=== PATIENT | female | born 1980 | race Caucasian/White ===

== ENCOUNTER 2024-02-20 09:05 | Emergency (ER) | payer BC, SELFPAY ==
[2024-02-20 09:09] VITALS: BP 145/99; PULSE 115; TEMP 37.4; O2SAT 98; BMI 28.4
--- NOTE | 2024-02-20 09:20 | XR_ITS ---
The [address] [address] Patient Name: OUSMANE BLANCO MRN: [id number] date: 1980 Sex: F Assigned Patient Location: ER Current Patient Location: ER Accession/Order Number: [id number] Exam Date: 02/20/2024 09:20 Report Date: 02/20/2024 09:44 At the request of: WIN RUELAS Procedure: XR chest 1V EXAMINATION: XR chest 1V REASON FOR EXAM: CP. Left-sided chest pain. COMPARISON: No comparison. FINDINGS: Cardiomediastinal shadows are normal with no pneumothorax, edema, infiltrate, or effusion. Bony thorax intact. XR/XR chest 1V IMPRESSION: No acute or focal cardiopulmonary findings. Electronically authenticated by: MEDHAT DAMON Date: 02/20/2024 09:44
--- NOTE | 2024-02-20 09:20 | ECG_ITS ---
The [facility] Test Date: 2024-02-20 Pat Name: OUSMANE BLANCO Department: Room: - Gender: Female [employer]: : 1980 Requested By: NINI PATTERSON Order Number: [id number] Reading MD: RODRIGUE HEBERT Measurements Intervals [place] Rate: 113 P: 72 NH: 174 QRS: 93 QRSD: 88 T: 17 QT: 336 QTc: 403 Interpretive Statements 1120 Sinus tachycardia 4068 Nonspecific [place] abnormality 7102 Moderate right axis deviation 9140 abnormal rhythm ECG No previous ECG available for comparison Electronically Signed On 02-21-2024 7:25:33 EDT by RODRIGUE HEBERT
[2024-02-20 09:29] LABS: Basophils Absolute Auto 0.1 10^3/uL (0.0-0.1); Basophils Percent Auto 0.4 % (0.2-2.0); Eosinophils Absolute Auto 0.1 10^3/uL (0.0-0.7); Eosinophils Percent Auto 0.8 % (0.9-7.0); Hematocrit 40.3 % (36.0-48.0); Hemoglobin 13.2 g/dL (12.0-16.0); Immature Granulocytes Abs Auto 0.04 10^3/uL (0.00-0.03); Immature Granulocytes Pct Auto 0.3 % (0.0-0.5); Lymphocytes Absolute Auto 2.4 10^3/uL (1.2-3.8); Lymphocytes Percent Auto 19.2 % (20.5-60.0); Mean Corpuscular HGB Conc 32.8 g/dL (29.9-35.2); Mean Corpuscular Hemoglobin 27.1 pg (26.7-34.0); Mean Corpuscular Volume 82.8 fL (81.0-99.0); Mean Platelet Volume 11.1 fL (9.5-13.5); Monocytes Absolute Auto 0.8 10^3/uL (0.3-0.8); Monocytes Percent Auto 6.3 % (1.7-12.0); Platelet Count 239 10^3/uL (150-450); Red Blood Count 4.87 10^6/uL (4.20-5.40); Red Cell Distribution Width 12.7 % (11.0-15.0); White Blood Count 12.4 10^3/uL (4.0-11.0)
[2024-02-20] MEDS: 0.9 % SODIUM CHLORIDE 1,000 ML 1000 ML IV (09:41)
[2024-02-20 09:46] LABS: Lactate/Lactic Acid 0.7 mmol/L (0.4-2.0)
[2024-02-20 09:48] LABS: D Dimer 0.39 mg/L FEU (<=0.59)
[2024-02-20 09:53] LABS: Albumin Globulin Ratio 0.9; Albumin Level 3.5 g/dL (3.4-5.0); Alkaline Phosphatase 121 U/L (46-116); Anion Gap 16.1; Aspartate Amino Transferase 12 U/L (15-37); BUN Creatinine Ratio 6.7; Bilirubin Total 0.7 mg/dL (0.2-1.0); Calcium 8.8 mg/dL (8.5-10.1); Carbon Dioxide 23.5 mmol/L (21.0-32.0); Chloride 102 mmol/L (98-107); Estimated GFR (African America >60 (>=60); Estimated GFR (Non-African Ame >60 (>=60); Globulin 3.8 g/dL; Glucose 100 mg/dL (74-106); Potassium 3.6 mmol/L (3.5-5.1); Sodium 138 mmol/L (136-145); Total Protein 7.3 g/dL (6.4-8.2); Troponin I High Sensitivity <4.0 pg/mL (4.0-51.3)
[2024-02-20 10:16] LABS: Alanine Aminotransferase 14 U/L (14-59)
--- NOTE | 2024-02-20 10:21 | CT_ITS ---
The [address] [address] Patient Name: OUSMANE BLANCO MRN: [id number] date: 1980 Sex: F Assigned Patient Location: ER Current Patient Location: ER Accession/Order Number: [id number] Exam Date: 02/20/2024 10:49 Report Date: 02/20/2024 11:37 At the request of: WIN RUELAS Procedure: CT abdomen pelvis wo con EXAMINATION: CT abdomen pelvis wo con REASON FOR EXAM: Left upper quadrant pain. TECHNIQUE: Dose reduction techniques were achieved by using automated exposure control and/or adjustment of mA and/or kV according to patient size and/or use of iterative reconstruction technique. Lung bases: No nodule, infiltrate, or effusion. Abdominal findings: There is inflammation surrounding the proximal descending colon. An inflamed diverticulum is seen in this location. The inflammation extends to the lateral conal fascia. There is no extraluminal gas or abscess. No free peritoneal gas. Findings compatible with diverticulitis. No abnormality of the noncontrast appearance of the liver, spleen, pancreas, or adrenal glands. No hydronephrosis. Hyperdense nodule at the upper pole left kidney measures 8 mm compatible with a proteinaceous cyst. No urolithiasis. No pancreatic or biliary ductal dilatation. No evidence for bowel obstruction. The appendix is normal. Pelvic findings: There are bilateral tubal ligation clips. Left ovarian follicle suggested. No abnormal distention of the urinary bladder. No adenopathy in the pelvic or inguinal regions. CT/CT abdomen pelvis wo con IMPRESSION: Left upper quadrant inflammation surrounding an inflamed diverticulum in the proximal descending colon. Findings compatible with uncomplicated acute diverticulitis of the proximal descending colon. Electronically authenticated by: MEDHAT DAMON Date: 02/20/2024 11:37
[2024-02-20] MEDS: FAMOTIDINE/PF 20 MG/2 ML VIAL IV (10:31)
[2024-02-20 10:42] LABS: Influenza Virus A Antigen Negative; Influenza Virus B Antigen Negative; Internal Control Within Normal Limits; SARS-CoV-2 Ag NEGATIVE (NEGATIVE)
[2024-02-20 11:29] LABS: HCG Qualitative NEGATIVE (NEGATIVE)
[2024-02-20] MEDS: KETOROLAC TROMETHAMINE 30 MG/ML VIAL 15 MG IVP (11:50)
--- NOTE | 2024-02-20 12:11 | ED_ITS ---
HPI - Abdominal Pain General Chief Complaint: Abdominal Pain Stated Complaint: ABDOMINAL/L SIDE PAIN Time Seen by Provider: 02/20/24 09:18 Source: patient Mode of arrival: walk-in Limitations: no limitations History of Present Illness HPI narrative: The patient presenting to us with almost 1 week history of symptoms including neck pain and sore throat no cough no chest pain, the patient initially signed in as chest pain but when pointing to the pain she is pointing to the left upper quadrant. She mentioned that almost on Thursday she started having this pain that is mostly fixed in that area associated with no nausea no vomiting no other complaints. The patient have had a low-grade fever she also had antibiotic that she finished last week after her primary care doctor put in azithromycin. Multiple family members were sick with a viral infection. The patient initially had sore throat and congestion but right now the left upper quadrant is fixed since Thursday which was 4- 5 days ago with no change in bowel movement no other complaints Related Data Previous Rx's ?Medication ?Instructions ?Recorded ciprofloxacin HCl 500 mg tablet 500 mg PO BID #14 tabs 02/20/24 (Cipro) famotidine 20 mg tablet (Pepcid) 20 mg PO BID #10 tabs 02/20/24 metronidazole 500 mg tablet 500 mg PO Q8H 7 days #21 tabs 02/20/24 Allergies Allergy/AdvReac Type Severity Reaction Status Date / Time pcn Allergy Intermediate Uncoded 02/20/24 09:09 Review of Systems ROS Status of ROS 10 or more systems reviewed and unremark able except as noted in history and below Exam Narrative Exam Narrative: Nurses notes and vital signs reviewed and patient is not hypoxic. General: Well-appearing and in no apparent distress. Skin: Warm, dry, no pallor noted. No rash. Head: Normocephalic, atraumatic. Neck: Supple, non-tender. Eye: Pupils are equal, round and EOMI. No scleral icterus. Ears, Nose, Mouth, and Throat: TM are clear, no nasal mucosal hypertrophy. Oral mucosa is moist, no posterior oropharynx erythema, uvula is mid-line Cardiovascular: Regular Rate and Rhythm without murmur, gallop or rub. Respiratory: No accessory muscle use or respiratory distress. Lungs are clear to auscultation, no wheezing, rales or rhonchi Chest Wall: no tenderness Back: No midline thoracic or lumbar vertebral tenderness. No CVA tenderness Musculoskeletal: normal ROM, no calf or popliteal tenderness, no lower extremity edema/swelling GI: Abdomen is soft, non-distended. Left upper quadrant tenderness noted on deep palpation. Neurological: A&O x4. No cranial nerve dysfunction observed. No truncal ataxia. Moves all extremities. Sensation intact. Psychiatric: Cooperative and interactive. Normal mood and affect. Constitutional Vital Signs, click to edit/add: Last Vital Signs Temp 99.4 F 02/20/24 09:09 Pulse 115 H 02/20/24 09:09 Resp 18 02/20/24 09:09 BP 145/99 H 02/20/24 09:09 Pulse Ox 98 02/20/24 09:09 O2 Del Method Room Air 02/20/24 09:09 Course Vital Signs Vital signs: Vital Signs Temperature 99.4 F 02/20/24 09:09 Pulse Rate 115 H 02/20/24 09:09 Respiratory Rate 18 02/20/24 09:09 Blood Pressure 145/99 H 02/20/24 09:09 Pulse Oximetry 98 02/20/24 09:09 Oxygen Delivery Method Room Air 02/20/24 09:09 Temperature 99.4 F 02/20/24 09:09 Pulse Rate 115 H 02/20/24 09:09 Respiratory Rate 18 02/20/24 09:09 Blood Pressure 145/99 H 02/20/24 09:09 Pulse Oximetry 98 02/20/24 09:09 Oxygen Delivery Method Room Air 02/20/24 09:09 MDM - Abdominal Pain MDM Narrative Medical decision making narrative: The patient EKG in the ER showing sinus tachycardia upon presentation with a heart rate of 113 CBC showed leukocytosis that is mild and chemistry was within normal. CAT scan of the abdomen shows diverticulitis that is mild Right now the patient was treated with Toradol in the ER as well as discharged home with soft liquid diet she have no nausea or vomiting she was instructed with hydration as well as pain control with Tylenol right now with instruction to come back in case of increasing pain. Patient discharged home with 7 days course of Flagyl and Cipro as well as Pepcid The patient is to follow up with primary care physician in next 2-3 days or to return to the emergency department should any of the signs or symptoms worsen or new symptoms develop. The patient agrees with the following Diagnosis and Treatment plan and the patient will be discharged home. Lab Data Labs: Lab Results 02/20/24 02/20/24 Range/Units 09:21 09:45 WBC 12.4 H (4.0-11.0) 10^3/uL RBC 4.87 (4.20-5.40) 10^6/uL Hgb 13.2 (12.0-16.0) g/dL Hct 40.3 (36.0-48.0) % MCV 82.8 (81.0-99.0) fL MCH 27.1 (26.7-34.0) pg MCHC 32.8 (29.9-35.2) g/dL RDW 12.7 (11.0-15.0) % Plt Count 239 (150-450) 10^3/uL MPV 11.1 (9.5-13.5) fL Neut % (Auto) 73.0 (43.0-75.0) % Lymph % (Auto) 19.2 L (20.5-60.0) % [place] % (Auto) 6.3 (1.7-12.0) % Eos % (Auto) 0.8 L (0.9-7.0) % Baso % (Auto) 0.4 (0.2-2.0) % Neut # (Auto) 9.0 H (1.4-6.5) 10^3/uL Lymph # (Auto) 2.4 (1.2-3.8) 10^3/uL [place] # (Auto) 0.8 (0.3-0.8) 10^3/uL Eos # (Auto) 0.1 (0.0-0.7) 10^3/uL Baso # (Auto) 0.1 (0.0-0.1) 10^3/uL Abs Immat Gran (auto) 0.04 H (0.00-0.03) 10^3/uL Imm/Tot Granulo (auto) 0.3 (0.0-0.5) % D-Dimer 0.39 (<=0.59) mg/L FEU Sodium 138 (136-145) mmol/L Potassium 3.6 (3.5-5.1) mmol/L Chloride 102 (98-107) mmol/L Carbon Dioxide 23.5 (21.0-32.0) mmol/L Anion Gap 16.1 BUN 6.0 L (7.0-18.0) mg/dL Creatinine 0.89 (0.55-1.02) mg/dL Est GFR ( Amer) >60 (>=60) Est GFR (Non-Af Amer) >60 (>=60) BUN/Creatinine Ratio 6.7 Glucose 100 (74-106) mg/dL Lactate 0.7 (0.4-2.0) mmol/L Calcium 8.8 (8.5-10.1) mg/dL Total Bilirubin 0.7 (0.2-1.0) mg/dL AST 12 L (15-37) U/L ALT 14 (14-59) U/L Alkaline Phosphatase 121 H (46-116) U/L Troponin I High Sens <4.0 L (4.0-51.3) pg/mL Total Protein 7.3 (6.4-8.2) g/dL Albumin 3.5 (3.4-5.0) g/dL Globulin 3.8 g/dL Albumin/Globulin Ratio 0.9 Serum HCG, Qual Negative (NEGATIVE) Influenza Type A Ag Negative Influenza Type B Ag Negative SARS-CoV-2 Ag (CV2AG) Negative (NEGATIVE) Discharge Plan Discharge Stand Alone Forms: Portal Instructions Chief Complaint: Abdominal Pain Clinical Impression: Diverticulitis Patient Disposition: Home, Self-Care Time of Disposition Decision: 12:12 Condition: Good Prescriptions / Home Meds: New ciprofloxacin HCl [Cipro] 500 mg tablet 500 mg PO BID Qty: 14 0RF metronidazole 500 mg tablet 500 mg PO Q8H 7 Days Qty: 21 0RF famotidine [Pepcid] 20 mg tablet 20 mg PO BID Qty: 10 0RF Print Language: Congolese Instructions: Diverticulitis (DC), Soft Diet (ED), Full Liquid Diet (DC) Referrals: RACHELL CORTEZ [Primary Care Provider] - 1 week
== END 2024-02-20 12:39 | disposition home or self-care (01) ==
PROVIDERS: Emergency Provider Emergency Medicine; Family Provider Family Medicine; PCP Physician Assistant
DX: K57.32 Diverticulitis of large intestine without perforation or abscess without bleeding (principal); Z20.822 Contact with and (suspected) exposure to COVID-19
CPT/HCPCS: 36415; 71045; 74176; 80053; 83605; 84484; 84703; 85025; 85378; 87804; 87811; 93005; 96374; 96375; 99285

== ENCOUNTER 2024-02-26 09:26 | Outpatient (OUT) | payer BC, SELFPAY ==
--- NOTE | 2024-02-26 09:28 | MM_ITS ---
Patient Name: OUSMANE BLANCO MR#: [id number] : 1980 Exam Date: 02/26/2024 Ordering Doctor: DR RACHELL CORONA RADIOLOGY REPORT PROCEDURE: MM TOMOSYNTHESIS SCREENING BI COMPARISON: None. INDICATIONS: screening Calculator Name NCI Breast Cancer Risk Assessment Tool 5 Year Breast Cancer Risk 0.60% Lifetime Breast Cancer Risk 8.90% Personal Breast Cancer No Personal Ovarian Cancer No Treatments None Family Cancers Mother with anal cancer at age 47; Mother with bladder cancer at age 65. LOCATION: The [facility] BREAST COMPOSITION: Scattered areas fibroglandular density. FINDINGS: DIAGNOSTIC CATEGORY 1--NEGATIVE. RIGHT BREAST: No significant suspicious finding. LEFT BREAST: No significant suspicious finding. RECOMMENDATIONS: ROUTINE MAMMOGRAM AND CLINICAL EVALUATION IN 12 MONTHS. PLEASE NOTE: A NORMAL MAMMOGRAM DOES NOT EXCLUDE THE POSSIBILITY OF BREAST CANCER. A CLINICALLY SUSPICIOUS PALPABLE LUMP SHOULD BE BIOPSIED. Dictated by: John Gamez M.D. on 02/26/2024 at 13:57 Approved by: John Gamez M.D. on 02/26/2024 at 14:01
== END 2024-02-26 09:27 | disposition home or self-care (01) ==
LOC: MAMMO 09:26
PROVIDERS: Family Provider Family Medicine; PCP Physician Assistant; Visit Provider Physician Assistant
DX: Z12.31 Encounter for screening mammogram for malignant neoplasm of breast (principal); Z80.8 Family history of malignant neoplasm of other organs or systems; Z80.52 Family history of malignant neoplasm of bladder
CPT/HCPCS: 77063; 77067